=== PATIENT | male | born 1985 | race Caucasian/White ===

== ENCOUNTER → 2021-04-08 15:31 | Outpatient (CLI) | payer BC, SELFPAY ==
--- NOTE | ~2021-04-08 | XR_ITS ---
XR elbow LT min 3V DATE: 04/08/2021 15:45 INDICATION: Left elbow pain, bursitis TECHNIQUE: 4 views COMPARISON: None FINDINGS: There is mild to moderate dorsal soft tissue swelling over the olecranon process consistent with olecranon bursitis. No fracture, dislocation or elbow joint effusion. No periosteal reaction or bone destruction. IMPRESSION: Dorsal left elbow soft tissue swelling over the olecranon process, consistent with olecra non bursitis Reviewed, dictated and finalized at location B. IMPRESSION: Dorsal left elbow soft tissue swelling over the olecranon process, consistent with olecranon bursitis
== END ==
PROVIDERS: PCP Family Medicine; Visit Provider Nurse Practitioner Family
DX: M70.32 Other bursitis of elbow, left elbow (principal)
CPT/HCPCS: 73080

== ENCOUNTER → 2023-09-16 11:10 | Outpatient (CLI) | payer OTHER, SELFPAY ==
--- NOTE | ~2023-09-16 | XR_ITS ---
EXAMINATION: XR chest 2V Exam Date/Time: 09/16/2023 11:27 BUSINESS TAXES SPECIALIST HISTORY: R06.2 - Wheezing Comparison: 10/01/2016. RESULT: Lines, tubes, and devices: None. Lungs and pleura: Linear perihilar opacities, with ill-defined patchy opacities in the bilateral sup rahilar and infrahilar regions. Cardiomediastinal silhouette: Stable. Other: No acute osseous or upper abdominal finding. IMPRESSION: Pulmonary opacities may reflect interstitial edema or respiratory bronchiolitis, as can be seen with atypical infection, asthma, aspiration, and small airways disease. Reviewed, dictated and finalized at location K. NESS TAXES SPECIALIST IMPRESSION: Pulmonary opacities may reflect interstitial edema or respiratory bronchiolitis , as can be seen with atypical infection, asthma, aspiration, and small airways disease.
== END ==
PROVIDERS: PCP Nurse Practitioner Adult Health; Visit Provider Nurse Practitioner Adult Health
DX: R91.8 Other nonspecific abnormal finding of lung field (principal); R06.2 Wheezing
CPT/HCPCS: 71046

== ENCOUNTER 2024-04-27 14:42 | Outpatient (CLI) | payer OTHER, SELFPAY ==
--- NOTE | 2024-04-30 10:25 | P.PCNPFT_ITS ---
PFT Procedure Performed PFT Procedure Performed Spirometry with Pre/Post Bronchodilator Plethysmography (Lung Vol) Diffusing Cap (DLCO) Flow Vol Loop PFT Interpretation DOS: 04/27/2024 REQUESTING: Dr. Sparks REASON FOR TESTING: Asthma PULMONARY FUNCTION TESTS Results are reliable and reproducible. Repeatability of spirometry FEV1 maneuver pre and post bronchodilator is Grade A. Spirometry: The pre-bronchodilator FEV1 is 3.27 L, 77%, decreased. The pre- bronchodilator FVC is 4.64 L, 88%, decreased. The FEV1/FVC ratio is 70%, decreased. After bronchodilator, the FEV1 is 3.28 L, 77%, no change. The post bronchodilator FVC is 4.86 L, 92%, +5%. The FEV1/FVC ratio is 68%, decreased. The FEF 25-75% is 2.24 L, decreased, 54% and does not change after bronchodilator administration. Lung volumes: The total lung capacity is 7.25 L, 104%, normal. The slow vital capacity is 5.13 L, 97%, higher than the forced vital capacity measured in spirometry. The residual volume is 2.12 L, 115%, normal. The RV/TLC is 29%, normal. Airway resistance is increased. Diffusion: DLCO is 30.6, 93%, normal. The DLCO/VA is 4.49, 92%, normal. Flow volume loop: The flow volume loop is unremarkable. IMPRESSION: This spirometry shows a mild obstructive ventilatory impairment without response to bronchodilator, normal lung volumes and normal diffusion. Lack of response to bronchodilator should not preclude use if clinically indicated. Rose Sparks MD
== END 2024-04-27 14:43 | disposition home or self-care (01) ==
LOC: ANHPFT 14:45
PROVIDERS: PCP Family Medicine; Visit Provider Internal Medicine Critical Care Medicine
DX: J45.998 Other asthma (principal)
CPT/HCPCS: 94060; 94726; 94729

== ENCOUNTER 2024-11-30 10:02 | Outpatient (CLI) | payer OTHER, SELFPAY ==
--- NOTE | ~2024-11-30 | CT_ITS ---
EXAMINATION:CT diagnostic chest wo con DATE: 11/30/2024 10:13 INDICATION: Shortness of breath. TECHNIQUE: Computed tomography (CT) of the chest was performed without intravenous contrast. Automate d exposure control and iterative reconstruction technique were employed. The dose-length product (DLP ) was 307.58 mGy-cm. COMPARISON: Chest 2 views 09/16/2023. FINDINGS: There is mild atelectasis bilaterally. There are mild patchy groundglass opacities in the p eripheral upper lobes. No pleural effusion. The heart size is normal. There are coronary artery calci fications. No pericardial effusion. There is diffuse hepatic steatosis. There is mild thoracic spondy losis. IMPRESSION: 1. Mild groundglass opacities in the peripheral upper lobes, likely atypical pneumonia. Reviewed, dictated and finalized at location A. IMPRESSION: 1. Mild groundglass opacities in the peripheral upper lobes, likely atypical pn eumonia.
--- OUTSIDE RECORDS SUMMARY | 2024-11-30 10:47 | XMS_ITS | Clinical Summary ---
Author Organization [facility] Address [address] [place] [address] Care Team Providers Care Care Nurse Rn Name Role Phone Moshe Coto MD Primary Care Provider [phone] Allergies No known active allergies Medications albuterol (PROVENTIL) (2.5 MG/3ML) 0.083% nebulizer solution Take 6 mLs (5 mg total) by nebulization every 4 (four) hours as needed for Wheezing or Shortness of breath (cough). 360 mL 4 Active TRELEGY ELLIPTA 200-62.5-25 MCG/ACT AEROSOL POWDER, BREATH ACTIVATED Inhale 1 puff into the lungs daily. 4 Active Active Problems No known active problems Social History Tobacco Use Types Packs/Day Years Used Date Smoking Tobacco: Every Day Cigarettes Smokeless Tobacco: Never Tobacco Cessation:Ready to Q uit: Not Asked; Counseling Given: Not Answered Alcohol Use Standard Drinks/Week Comments Not Currently 0 (1 standard drink = 0.6 oz pur e alcohol) Sex and Gender Information Value Date Recorded Sex Assigned at Not on file Legal Sex Male 7:17 PM CDT Gender Identity Not on file Sexual Orientation Not on file Last Filed Vital Signs Vital Sign Reading Time Taken Comments Blood Pressure 145/85 03/12/2024 8:36 AM CDT Pulse 88 03/12/2024 8:34 AM CDT Temperature 36.9 C (98.5 F) 03/12/2024 8:34 AM CDT Respiratory Rate 16 03/12/2024 8:34 AM CDT Oxygen Saturation 96% 03/12/2024 8:34 AM CDT Inhaled Oxygen Concentration - - Weight 89.4 kg (197 lb) 03/12/2024 8:34 AM CDT Height 177.8 cm (5' 10 ) 03/12/2024 8:34 AM CDT Body Mass Index 28.27 03/12/2024 8:34 AM CDT Plan of Treatment Health Maintenance Due Date Last Done Comments Annual Physical 1987 Pneumococcal Vaccine: Pediat rics (0 to 5 Years) and At-Risk Patients (6 to 64 Years) (1 of 2 - PCV) 1990 Hepatitis C 2002 DTaP, Tdap and Td Vaccines ( 1 - Tdap) 2003 Hepatitis B Vaccines (1 of 3 - 19+ 3-dose series) 2003 COVID-19 Vaccine (2 - 2023-2 5 season) 2024 12/09/2020 Influenza Adult (#1) 2024 PHQ-2 (Physician [place]) 09/05/2024 HPV Vaccines Aged Out No longer eligi ble based on patient's age to complete this topic Meningococcal B Vaccine Aged Out No l onger eligible based on patient's age to complete this topic Meningococcal Vaccine Aged Out No rayna juan eligible based on patient's age to complete this topic RSV Immunizations Under 20 Months Aged Out No longer eligible based on patient's age to complete this topic Insurance [employer] Care Teams Care Nurse Rn Relationship Specialty Start Date End Date Moshe Coto MD [address] [address] [address] PCP - General FAMILY PRACTICE 05/12/19
[2024-12-01 08:13] LABS: Alpha-1-Antitrypsin, QN 121 mg/dL (83-199)
== END 2024-11-30 10:03 | disposition home or self-care (01) ==
LOC: ANHIMG 10:02
PROVIDERS: PCP Family Medicine; Visit Provider Internal Medicine Critical Care Medicine
DX: R06.02 Shortness of breath (principal); J45.40 Moderate persistent asthma, uncomplicated; R91.8 Other nonspecific abnormal finding of lung field
CPT/HCPCS: 36415; 71250; 82103

== ENCOUNTER 2024-12-19 14:13 | Outpatient (CLI) | payer OTHER, SELFPAY ==
--- NOTE | 2024-12-19 14:23 | ECHO_ITS ---
Patient Info Name: Virgilio Suh Age: 39 years : 1985 Gender: Male Ht: 70 in Wt: 205 lbs BSA: 2.17 m2 HR: 89 bpm BP: 155 / 96 mmHg Heart Rhythm: Sinus Rhythm Technical Quality: Good Exam Date: 12/19/2024 2:26 PM Exam Location: Echo Lab Patient Status: Outpatient Admit Date: 12/19/2024 Staff Ordering Physician: Rose Sparks MD Conveyor System Operator: Candis Alvarado RDCS Attending Provider: Rose Sparks MD Referring Physician: Bridger BRICEÑO; Exam Type: CA echo doppler color flow Study Info Indications R06.02 - Shortness of breath Complete two-dimensional, color flow and Doppler transthoracic echocardiogram is performed. Summary 1. Complete two-dimensional, color flow and Doppler transthoracic echocardiogram is performed. 2. Left ventricular chamber dimension is normal. 3. Left ventricular systolic function is normal, estimated at 65-70%. 4. The left ventricular diastolic function is grade II diastolic dysfunction. 5. E/e' 11 is mildly elevated. Left Ventricle E/e' 11 is mildly elevated. Left ventricular chamber dimension is normal. Left ventricular systolic function is normal, estimated at 65-70%. The left ventricular diastolic function is grade II diastolic dysfunction. Right Ventricle Right ventricular chamber dimension is normal. Right ventricular systolic function is normal. Left Atria Left atrial chamber dimension is normal. Right Atria Right atrial chamber dimension is normal. Aortic Valve The aortic valve is trileaflet. There is no aortic valve stenosis. There is no aortic valve regurgitation. Pulmonic Valve There is no pulmonic regurgitation. Mitral Valve There is no mitral valve stenosis. There is no mitral valve regurgitation. Tricuspid Valve There is no tricuspid valve regurgitation. Pericardium/Pleural There is no pericardial effusion. Inferior Vena Cava Normal inferior vena cava with >50% collapse upon inspiration consistent with normal right atrial pressure, 5 mmHg. Aorta The aortic root size at the sinus of Valsalva is normal. Left Ventricular Outflow Tract Name Value Normal LVOT 2D LVOT Diameter 2.0 cm LVOT Doppler LVOT Peak Gradient 8 mmHg LVOT Mean Gradient 4 mmHg LVOT VTI 24 cm LVOT VTI/AV VTI Ratio 0.9 LVOT Stroke Volume 74 ml LVOT CO 5.9 l/min LVOT CI 2.7 l/min/m2 Pulmonic Valve Name Value Normal RVOT Doppler RVOT Peak Gradient 4 mmHg PV Doppler PV Peak Gradient 8 mmHg Mitral Valve Name Value Normal MV Doppler MV Decel [place] 611 cm/s2 MV PHT 54 ms MV Area (PHT) 4.1 cm2 4.0-5.0 MV Diastolic Function MV E Peak Velocity 114 cm/s MV A Peak Velocity 86 cm/s MV E/A 1.3 MV Decel Time 187 ms MV Annular TDI MV E/e' (Septal) 12.5 <=8.0 MV E/e' (Lateral) 11.2 <=8.0 MV E/e' (Average) 11.8 Tricuspid Valve Name Value Normal Estimated PAP/RSVP RA Pressure 5 mmHg <=5 Aorta Name Value Normal Ascending Aorta Ao Root Diameter (MM) 3.0 cm Ao Root Diam Index (MM) 1.4 cm/m2 Aortic Valve Name Value Normal AV Doppler AV Peak Velocity 151 cm/s AV Peak Gradient 9 mmHg AV Mean Gradient 5 mmHg AV VTI 26 cm AV Area (Cont Eq VTI) 2.8 cm2 >=3.0 AV Area (Cont Eq Joel) 2.8 cm2 AV Regurgitation 2D LVOT Area 3.1 cm2 Ventricles Name Value Normal LV Dimensions 2D/MM IVS Diastolic Thickness (2D) 1.1 cm 0.6-1.0 LVID Diastole (2D) 4.8 cm 4.2-5.8 LVIW Diastolic Thickness (2D) 1.0 cm 0.6-1.0 LVID Systole (2D) 2.7 cm 2.5-4.0 LVOT Diameter 2.0 cm LV Mass (2D Cubed) 182.39 g 88.00-224.00 LV Mass Index (2D Cubed) 84 g/m2 49-115 Relative Wall Thickness (2D) 0.40 LV Fractional Shortening/Ejection Fraction 2D/MM LV Fractional Shortening (2D) 45 % 25-43 LV EF (2D Teicholz) 76 % 52-72 LV Diastolic Volume (4C MOD) 91 ml LV EF (4C MOD) 66 % LV Diastolic Volume (2C MOD) 96 ml LV EF (2C MOD) 65 % LV Diastolic Volume (BP MOD) 93 ml 62-150 LV Diastolic Volume Index (BP MOD) 43 ml/m2 34-74 LV Systolic Volume (BP MOD) 32 ml 21-61 LV Systolic Volume Index (BP MOD) 15 ml/m2 11-31 LV EF (BP MOD) 66 % 52-72 LV Diastolic Length (4C) 9.4 cm LV Systolic Length (4C) 7.6 cm LV Stroke Volume (4C MOD) 60 ml Atria Name Value Normal LA Dimensions LA Dimension (MM) 4.4 cm 3.0-4.1 LA Volume (4C A-L) 56 ml LA Volume (BP A-L) 56 ml RA Dimensions RA Area (4C) 13.3 cm2 <=18.0 Report Signatures
--- OUTSIDE RECORDS SUMMARY | 2024-12-19 15:27 | XMS_ITS | Clinical Summary ---
Author Organization [facility] Address [address] [place] [address] Care Team Providers Care Legal Internship Name Role Phone Moshe Coto MD Primary Care Provider [phone] Allergies No known active allergies Medications albuterol [...] 5 Years) and At-Risk Patients (6 to 49 Years) (1 of 2 - PCV) 1990 Hepatitis C 2002 DTaP, Tdap and Td Vaccines ( 1 - Tdap) 2003 Hepatitis B Vaccines (1 of 3 - 19+ 3-dose series) 2003 COVID-19 Vaccine (2 - 2023-2 5 season) 2024 12/09/2020 PHQ-2 (Physician [place]) 09/05/2024 HPV Vaccines Aged Out No longer [...] patient's age to complete this topic Insurance [employer] Care Teams Legal Internship Relationship Specialty Start Date End Date Moshe Coto MD [address] [place] [address] PCP - General FAMILY PRACTICE 05/12/19
== END 2024-12-19 14:14 | disposition home or self-care (01) ==
LOC: ANHCARD 14:14
PROVIDERS: PCP Family Medicine; Visit Provider Internal Medicine Critical Care Medicine
DX: R93.1 Abnormal findings on diagnostic imaging of heart and coronary circulation (principal); R09.02 Hypoxemia
CPT/HCPCS: 93306

== ENCOUNTER 2025-04-16 06:57 | Outpatient (CLI) | payer OTHER, SELFPAY ==
--- OUTSIDE RECORDS SUMMARY | 2025-04-16 07:00 | XMS_ITS | Encounter Summary ---
Author Organization [facility] Address [facility] [place] [address] Care Team Providers Care Kayaking Instructor Name Role Phone Moshe Coto MD Primary Care Provider [phone] Encounter Details Date Type Department Care Team (Late st Contact Info) Description 02/14/2025 [place] Message [facility] [address] [place] [address] Jake Becker MD [address] [address] Question Social History Tobacco Use Types Packs/Day Years Used Date Smoking Tobacco: Every Day Cigarettes Smokeless Tobacco: Never Alcohol Use Standard Drinks/Week Comments Not Currently 0 (1 standard drink = 0.6 oz pur e alcohol) Humiliation, Afraid, Rape, and Kick questionnair e Answer Date Recorded Within the last year, have y ou been afraid of your partner or ex-partner? No 02/04/2025 Within the last year, have y ou been humiliated or emotionally abused in other ways by your partner or ex-partner? No Within the last year, have y ou been kicked, hit, slapped, or otherwise physically hurt by your partner or ex-partner? No 02/04/2025 Within the last year, have y ou been raped or forced to have any kind of sexual activity by your partner or ex-partner? No 02/04/2025 Overall Financial Resource Strain (CARDIA) Answe r Date Recorded How hard is it for you to pa y for the very basics like food, housing, medical care, and heating? Not hard at all 02/04/2025 Hunger Vital Sign Answer Date Recorded Within the past 12 months, y ou worried that your food would run out before you got the money to buy more. Never true 02/05/20 25 Within the past 12 months, t he food you bought just didn't last and you didn't have money to get more. Never true 02/04/2025 Housing Stability Vital Sign Answer Geo e Recorded In the last 12 months, was t here a time when you were not able to pay the mortgage or rent on time? No 02/04/2025 In the past 12 months, how m any times have you moved where you were living? 0 02/04/2025 At any time in the past 12 m [facility], were you homeless or living in a care home (including now)? No 02/04/2025 Sex and Gender Information Value Date Recorded Sex Assigned at Male 02/04/2025 3:41 AM CDT Legal Sex Male 7:17 PM CDT Gender Identity Not on file Sexual Orientation Not on file documented as of this encounter Functional Status * Are you deaf or do you have serious difficulty hearing Answer Date of Assessment Author Status No 02/04/2025 6:07 AM ABDULKADIRT Jacqueline Lawler RN Active * Are you blind or do you have serious difficulty seeing, even when wearing glasses? Answer Date of Assessment Author Status No 02/04/2025 6:07 AM ABDULKADIRT Jacqueline Lawler RN Active * Do you have serious difficulty walking or climbing stairs? Answer Date of Assessment Author Status No 02/04/2025 6:07 AM ABDULKADIRT Jacqueline Lawler RN Active * Do you have difficulty dressing or bathing? Answer Date of Assessment Author Status No 02/04/2025 6:07 AM ABDULKADIRT Jacqueline Lawler RN Active * Because of a physical, mental, or emotional condition, do you have difficulty doing errands alone such as visiting a doctor's office or shopping? Answer Date of Assessment Author Status No 02/04/2025 6:07 AM CDT Bucky, Jacqueline E, RN Active documented as of this encounter Mental Status * Because of a physical, mental, or emotional condition, do you have serious difficulty concentrating, remembering, or making decisions? Answer Entry Date Author Status No 02/04/2025 6:07 AM CDT Jacqueline Lawler RN Active documented in this encounter Plan of Treatment Upcoming Encounters Date Type Department Care Team (Late st Contact Info) Description 05/16/2025 11:15 AM CDT Office Visit [place] [facility] [address] [place] [address] Nisha Saravia FNP [address] [place], [place] [address] [place] [address] documented as of this encounter Goals Goal Patient Goal Type Associated Problems Recent Progress Patient-Stated? Author Quit smoking Lifestyle No Prisca Flores RN documented as of this encounter Visit Diagnoses Not on filedocumented in this encounter Care Teams Kayaking Instructor Relationship Specialty Start Date End Date Moshe Coto MD [address] [place] [address] PCP - General FAMILY PRACTICE 05/12/19 documented as of this encounter
--- OUTSIDE RECORDS SUMMARY | 2025-04-16 07:00 | XMS_ITS | Clinical Summary ---
Author Organization [facility] Address [address] [place] [address] Care Team Providers Care Vice President Of Recruiting Name Role Phone Moshe Coto MD Primary Care Provider [phone] Allergies No known active allergies Medications albuterol (PROVENTIL) (2.5 MG/3ML) 0.083% nebulizer solution Take 6 mLs (5 mg total) by nebulization every 4 (four) hours as needed for Wheezing or Shortness of breath (cough). 360 mL 4 Active carvedilol (COREG) 6.25 MG tablet Take 1 tablet (6.25 mg total) by mouth 2 (two) times daily with meals. 60 tablet 3 5 Active losartan (COZAAR) 25 MG tablet Take 1 tablet (25 mg total) by mouth daily. 30 tablet 3 5 Active nitroglycerin (NITROSTAT) 0.[address] 1 tablet (0.4 mg total) under the tongue every 5 (five) minutes as needed for Chest Pain. 25 tablet 5 Active BREZTRI AEROSPHERE 160-9-4.8 MCG/ACT inhaler Inhale 2 puffs into the lungs 2 (two) times daily. 5 Active albuterol sulfate HFA 108 (90 Base) MCG/ACT inhaler Inhale 2 puffs into the lungs every 4 (four) hours as needed. 5 Active ticagrelor (BRILINTA) 90 mg tablet Take 1 tablet (90 mg total) by mouth 2 (two) times daily. 60 tablet 3 5 Active aspirin 81 MG chewable tablet Chew 1 tablet (81 mg total) by mouth daily. 100 tablet 3 5 Active atorvastatin (LIPITOR) 80 MG tablet Take 1 tablet (80 mg total) by mouth nightly at bedtime. 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 02/07/2025 MyChart Message Enc [facility] [id number] [place] [address] Jake Becker MD Work Note 02/05/2025 Telephone [facility] [place] [address] Nisha Glass NP Appointment Request 02/04/2025 4:39 AM CDT - 02/05/2025 10:37 AM CDT Hospital Encounter [facility] [place] [address] Jonh Randall MD Islam, Maaroof, MD Sadat, Kamel, MD Discharge Disposition: Home or Self Care (Routine Discharge) 02/04/2025 3:26 AM CDT - 02/04/2025 4:20 AM CDT Emergency [facility] Emergency Room [id number] [place] [id number] Jas Man MD Chest Pain Discharge Disposition: Transfer to Acute Care Hospital 02/04/2025 Orders Only [facility] Emergency Room [address] [place] [address] Emergency, Nurse, RN 02/04/2025 Travel from Last 3 Months Social History Tobacco Use Types Packs/Day Years [...] any time in the past 12 m [facility], were you homeless or living in a care home (including now)? No 02/04/2025 Sex and Gender Information Value Date Recorded Sex Assigned at Male 02/04/2025 3:41 AM CDT Legal Sex Male 7:17 PM CDT Gender Identity Not on file Sexual Orientation Not on file Last Filed Vital Signs Vital Sign Reading Time Taken Comments Blood Pressure 90/50 02/14/2025 12:06 PM CDT Pulse 75 02/14/2025 12:06 PM CDT Temperature 36.7 C (98.1 F) 02/05/2025 7:32 AM CDT Respiratory Rate 13 02/05/2025 7:32 AM CDT Oxygen Saturation 94% 02/05/2025 9:05 AM CDT Inhaled Oxygen Concentration - - Weight 93 kg (205 lb) 02/14/2025 12:06 PM CDT Height 177.8 cm (5' 10) 02/14/2025 12:06 PM CDT Body Mass Index 29.41 02/14/2025 12:06 PM CDT Plan of Treatment Upcoming Encounters Date Type Department Care Team (Late st Contact Info) Description 05/16/2025 11:15 AM CDT [facility] [address] [place] [phone] Nisha Saravia FNP [address] [place] [address] [address] [place] [address] Health Maintenance Due Date Last Done Comments Annual Physical 1987 Hepatitis C 2002 DTaP, Tdap and Td Vaccines ( 1 - Tdap) 2003 Hepatitis B Vaccines (1 of 3 - 19+ 3-dose series) 2003 Pneumococcal Vaccine: Pediat rics (0 to 5 Years) and At-Risk Patients (6 to 49 Years) (1 of 2 - PCV) 2003 HPV Vaccines (1 - 3-dose SCD M series) 2011 COVID-19 Vaccine (2 - 2023-2 5 season) 2024 12/09/2020 PHQ-2 (Physician Panacea) 09/05/2024 Meningococcal B Vaccine Aged Out No l onger eligible based on patient's age to complete this topic Meningococcal Vaccine Aged Out No rayna juan eligible based on patient's age to complete this topic RSV Immunizations Under 20 Months Aged Out No longer eligible based on patient's age to complete this topic Goals Goal Patient Goal Type Associated Problems Recent Progress Patient-Stated? Author Quit smoking Lifestyle Prisca Mcgovern RN Procedures Procedure Name Priority Date/Time Associated Diagnosis Comments LIPID PANEL Routine 02/05/2025 7:10 AM CDT BASIC METABOLIC PANEL Routine 02/05/2025 7:10 AM CDT THYROID STIM HORMONE TSH Routine 02/05/2025 7:10 AM CDT HEMOGLOBIN, GLYCOSYLATED Routine 02/05/2025 7:10 AM CDT MAGNESIUM Routine 02/05/2025 7:10 AM CDT CBC W/DIFF AUTOMATED Routine 02/05/2025 7:10 AM CDT HEMOGLOBIN, GLYCOSYLATED Routine 02/04/2025 1:52 PM CDT LIPID PANEL Routine 02/04/2025 1:52 PM CDT USE ECHOCARDIOGRAM Today 02/04/2025 7: 58 AM CDT MRSA SCREENING Routine 02/04/2025 6:00 AM CDT ECG 12-LEAD Routine 02/04/2025 5:46 AM CDT XA LHC POSS DEBBIE 02/04/2025 5:09 AM CDT STEMI (ST elevation myocardial infarction) ([facility]) CRITICAL CARE Routine 02/04/2025 3:48 AM CDT XR CHEST PORTABLE STAT 02/04/2025 3:4 5 AM CDT TROPONIN, QUANT STAT 02/04/2025 3:32 AM CDT COMPREHENSIVE METABOLIC PANEL STAT 02/04/2025 3:32 AM CDT CBC W/DIFF AUTOMATED STAT 02/04/2025 3:32 AM CDT ECG 12-LEAD Routine 02/04/2025 3:29 AM CDT from Last 3 Months Results * HEMOGLOBIN, GLYCATED (02/05/2025 7:10 AM CDT) Only the most recent of2 resultswithin the time period is included. HGB A1C 5.4 <5.7 % 02/05/2025 9:28 AM CDT [facility] Comment: ADA GUIDELINES 2010 5.7 TO 6.4% INCREASED RISK OF DIABETES > OR = 6.5% CONSISTENT WITH DIABETES ESTIMATED AVG GLUCOSE 108 mg/dL 02/05/2025 9:28 AM CDT [facility] 02/05/2025 7:10 AM CDT us Jonh Randall MD LABORATORY Final Resul t [facility] [address] [place] [address], [place] [phone] * (ABNORMAL) BASIC METABOLIC PANEL (02/05/2025 7:10 AM CDT) [facility] [address] GLUCOSE 94 70 - 99 MG/DL 02/05/2025 8:58 AM CDT [facility] BUN 13 7 - 18 MG/DL 02/05/2025 8:58 AM T [facility] CREATININE S/P/B 1.32(H) 0.7 - 1.3 MG/DL 02/05/2025 8:58 AM CDT [facility] SODIUM S/P/B 138 136 - 145 MMOL/L 02/05/2025 8:58 AM T [facility] POTASSIUM S/P/B 4.4 3.5 - 5.1 MMOL/L 02/05/2025 8:58 AM T [facility] CHLORIDE S/P/B 106 97 - 115 MMOL/L 02/05/2025 8:58 AM CDT [facility] CO2 27.4 21 - 32 MMOL/L 02/05/2025 8:58 AM T [facility] CALCIUM S/P/B 9.5 8.5 - 10.1 MG/DL 02/05/2025 8:58 AM T [facility] ANION GAP 4.6 2 - 10 MMOL/L 02/05/2025 8:58 AM T [facility] BUN CREATININE RATIO 9.8 6 - 26 02/05/2025 8:58 AM T [facility] GFR ESTIMATE 70(L) >90 ML/MIN/1.7 3 M2 02/05/2025 8:58 AM T [facility] Comment: NOTE: eGFR is not calculated for patients <18 years of age or gender unknown. This is an estimated GFR calculation using the new CKD EPI creatinine equation without race and so does not require a correction factor for race. This estimated GFR should not be used for calculating drug doses. 02/05/2025 7:10 AM CDT us Jonh Randall MD LABORATORY Final Resul t [facility] [address] [place] [address], [place] [phone] * (ABNORMAL) LIPID PANEL (02/05/2025 7:10 AM CDT) Only the most recent of2 resultswithin the time period is included. [facility] [address] CHOLESTEROL 236(H) <200 MG/DL 02/05/2025 8:57 AM CDT [facility] TRIGLYCERIDES 317(H) <150 MG/DL 02/05/2025 8:57 AM CDT [facility] HDL 28(L) >40.0 MG/DL 02/05/2025 8:57 AM CDT [facility] LDL (CALCULATED) 145(H) <100 MG/DL 02/05/2025 8:57 AM CDT [facility] NON HDL CHOLESTEROL 208(H) <130 MG/DL 02/05/2025 8:57 AM T [facility] CHOL/HDL RATIO 8.4(H) 0.0 - 4.5 02/05/2025 8:57 AM CDT [facility] VLDL CALCULATION 63(H) 5 - 55 MG/DL 02/05/2025 8:57 AM CDT [facility] LIPID INTERPRETATION 02/05/2025 8:57 AM CDT [facility] Comment: [facility] CONCENSUS REPORT RECOMMENDATIONS: ADULT CHILD LOW RISK: CHOLESTEROL <200 <170 TRIGLYCERIDE <150 --- HDL >=60 --- LDL <100 <110 BORDERLINE: CHOLESTEROL 200-239 170-199 TRIGLYCERIDE 150-199 --- HDL 40-59 --- LDL 100-159 110-129 HIGH RISK: CHOLESTEROL >=240 >=200 TRIGLYCERIDE >=200 --- HDL <40 --- LDL >=160 >=130 02/05/2025 7:10 AM CDT us Jonh Randall MD LABORATORY Final Resul t [facility] [address] [place] [address], * CBC W/DIFF AUTOMATED (02/05/2025 7:10 AM CDT) Only the most recent of2 resultswithin the time period is included. WBC 5.65 4.5 - 11.0 x10'3/uL 02/05/2025 8:24 AM CDT [facility] RBC 5.79 4.70 - 6.10 x10'6/uL 02/05/2025 8:24 AM CDT [facility] HGB 17.5 14.0 - 18.0 G/DL 02/05/2025 8:24 AM CDT [facility] HCT 53.8 43.0 - 54.0 % 02/05/2025 8:24 AM CDT [facility] MCV 92.9 80.0 - 94.0 FL 02/05/2025 8:24 AM CDT [facility] MCH 30.2 27.0 - 31.0 PG 02/05/2025 8:24 AM CDT [facility] MCHC 32.5 32.0 - 36.0 G/DL 02/05/2025 8:24 AM CDT [facility] RDW 13.5 11.5 - 14.5 % 02/05/2025 8:24 AM CDT [facility] PLT 215 130 - 400 x10'3/uL 02/05/2025 8:24 AM CDT [facility] MPV 11.1 9.3 - 12.2 FL 02/05/2025 8:24 AM CDT [facility] DIFFERENTIAL TYPE AUTOMATED DIFFERENTIAL 02/05/2025 8:24 AM CDT [facility] NEUTROPHILS % 56.6 % 02/05/2025 8:24 AM CDT [facility] LYMPHOCYTES % 31.0 % 02/05/2025 8:24 AM CDT [facility] MONOCYTES % 9.2 % 02/05/2025 8:24 AM CDT [facility] EOSINOPHILS 1.1 % 02/05/2025 8:24 AM CDT [facility] BASOPHILS 0.7 % 02/05/2025 8:24 AM CDT [facility] IMMATURE GRANS % 1.4 % 02/06/20 8:24 AM CDT [facility] ABS. NEUTROPHILS 3.20 1.80 - 7.70 x10'3/uL 02/05/2025 8:24 AM CDT [facility] ABS. LYMPHOCYTES 1.75 1.00 - 4.80 x10'3/uL 02/05/2025 8:24 AM CDT [facility] ABS. MONOCYTES 0.52 0.30 - 0.82 x10'3/uL 02/05/2025 8:24 AM CDT [facility] ABS. EOSINOPHILS 0.06 0.04 - 0.54 x10'3/uL 02/05/2025 8:24 AM CDT [facility] ABS. BASOPHILS 0.04 0.01 - 0.08 x10'3/uL 02/05/2025 8:24 AM CDT [facility] ABS. IMMATURE GRANULOCYTES 0.08 0.00 - 0.49 x10'3/uL 02/05/2025 8:24 AM CDT [facility] 02/05/2025 7:10 AM CDT Jonh Randall MD LABORATORY Final Resul t Performing Organization Address [facility] Co de Phone Number [facility] [address] [place] [address], * THYROID STIM HORMONE, TSH (02/05/2025 7:10 AM CDT) TSH 1.200 0.358 - 3.74 uIU/ML 02/05/2025 8:58 AM CDT [facility] Comment: HIGH DOSES OF BIOTIN MAY INTERFERE WITH THIS TEST RESULT. CORRELATION TO CLINICAL HISTORY AND PRESENTATION RECOMMENDED. 02/05/2025 7:10 AM CDT Jonh Randall MD LABORATORY Final Resul t Performing Organization Address [facility] Co de Phone Number [facility] [address] [place] [phone], * (ABNORMAL) MAGNESIUM (02/05/2025 7:10 AM CDT) MAGNESIUM 2.5(H) 1.8 - 2.4 MG/DL 02/05/2025 8:58 AM CDT [facility] 02/05/2025 7:10 AM CDT Jonh Randall MD LABORATORY Final Resul t Performing Organization Address [facility] Co de Phone Number [facility] [address] [place] [address], [place] [phone] * USE ECHOCARDIOGRAM (02/04/2025 7:58 AM CDT) Anatomical Region Laterality Modality Cardiac Echocardiogram 02/04/2025 7:11 AM CDT Narrative 02/04/2025 8:40 PM CDT Echocardiography Report Pat.Name: OMER SUH Pat.ID: [id number] St.Date: 02/04/2025 Exam Time: 7:11:00 AM Study Type:ECHO WITH CARDIAC DOPPLER COMP Height: 70 in Weight: 195 lb BSA: 2.06 m2 Age: 8 1985,39Y Sex: M BP: 161/90 HR: 87 bpm Sonogrphr: Katherine Motley Pat. Stat.:Inpatient Room: 218 Reason for Study:STEMI Procedures: 2D, M-mode, Doppler, Color Flow, The study quality is technically adequate. Race: W ++++++++++++++++++++++++++++++++++++ SUMMARY: ++++++++++++++++++++++++++++++++++++ The left ventricular size is normal. The left ventricular systolic function is normal. Estimated left ventricular ejection fraction is 60-65%. Left ventricular diastolic function is normal. Wall motion appears normal in all segments. The right ventricular size is normal. Right ventricular systolic function is normal. Trivial degree of aortic valve stenosis. ++++++++++++++++++++++++++++++++++++ FINDINGS: ++++++++++++++++++++++++++++++++++++ LV: The left ventricular size is normal. The left ventricular systolic function is normal. Estimated left ventricular ejection fraction is 60-65%. Mild concentric left ventricular hypertrophy. Left ventricular diastolic function is normal. WM: Wall motion appears normal in all segments. RV: The right ventricular size is normal. Right ventricular systolic function is normal. IVS: No evidence of ventricular septal defect. LA: The left atrial size is normal. The left atrial volume is normal ( less than 34 ml/M2). RA: Right atrial size is mildly enlarged. IAS: Atrial septum appears intact. ALEJANDRA: No evidence of pericardial effusion. AO: Normal aortic root. PA: Estimated right atrial pressure of 3 mmHg. SVn: Inferior vena cava shows >50% collapse with respiration consistent with normal right atrial pressure. AV: Trivial degree of aortic valve stenosis. The peak velocity across the aortic valve measures 2.1m/sec with a peak gradient of 18mmHg and a mean gradient of 12mmHg. The calculated aortic valve area is 2.9cm2. No evidence of aortic regurgitation. The aortic valve not well visualized. MV: Trace mitral regurgitation. No evidence of mitral valve stenosis. PV: No evidence of pulmonic valve stenosis. No evidence of pulmonic regurgitation. TV: A trace of tricuspid regurgitation. Right ventricular systolic pressure is <20 mmHg. No evidence of tricuspid valve stenosis. ++++++++++++++++++++++++++++++++++++ MEASUREMENTS: ++++++++++++++++++++++++++++++++++++ DOPPLER LVOT LVOTpkPG 9 mmHg LVOTmnPG 5 mmHg LVOTpkVel 152 cm/s (70-110)+* LVOT SV 88 ml LVOT TVI 28 cm LVOT CO 128 ml/s Pulmonary Veins PVnpkVeld 46.2 cm/s PVnVs/Vd 1.2 PVnpkVels 54.9 cm/s PVn A Dur 130 msec AV Forward Flow AV TVI 34.2 cm AV pkPG 16 mmHg AV pkVel 199 cm/s (100-170)+* Area (TVI) 2.57 cm2 (3-5)* AV mnPG 10 mmHg Area (Joel) 2.4 cm2 (3-5)* MV Forward Flow MV DeTm 169 msec MV pkE 76.8 cm/s (60-130) MV E/A 0.9 MV pkA 82.5 cm/s PV Forward Flow PV pkVel 105 cm/s (60-90)+* PV AC 115 msec PV pkPG 4 mmHg TV Regurg Flow TV pkPG 14 mmHg TV pkVel 189 cm/s (30-70)* TV Forward Flow TV pkE 79.5 cm/s Lat E' Lat e 13.7 cm/s Lat E/E' Lat E/e 5.6 Med E' Med e 10.2 cm/s Med E/E' Med E/e 7.5 Aortic Valve Aortic Valve Ar 1.25 Aortic Valve Ve 0.76 PV Antegrade Flow Acceleration Sl 799 cm/s2 Right Atrium Wagner's Disk 20 Right Ventricle Right Ventricle 16.2 cm/s 2D Left Ventricle LVIDd 4 cm (3.6-5.2) LV ESV 52 ml LVIDs 2.8 cm (2.3-3.9) LV ESV 60 ml LngAxd 9.8 cm LVESV BP 55.9 ml LngAxd 10 cm LV EF 55.6 % LV EDV 117 ml LV EF 50.4 % LV EDV 122 ml LV EF BP 53.4 % LVEDV BP 120 ml LV SV 65 ml LngAxs 8.09 cm LV SV 61 ml LngAxs 8.15 cm LV SV BP 64.1 ml LVPW LVPWd 1.2 cm Right Ventricle RVIDd 3.5 cm (2.6-4.3) Right Ventricle 24 mm Right Ventricle 35 mm Right and Left 0.875 Major Hazel 91 mm Ventricular Septum IVSd 1.2 cm Left Atrium LA a-p 4.1 cm (2.8-3.4)* LA VOLBP 51.3 ml Aorta Ao Rtd 3.1 cm (zsc 0.6) Ao Asc 3.4 cm (zsc 2.8)* LVOT LVOT 2 cm LVOTArea 3.14 cm2 Ratios IVS LA Biplane LAVol I BP 24.9 ml/m2 Right Atrium Minor Hazel 35 mm RA Single Plane Right Atrium MO 13 mm Right Atrium Sy 31.4 ml Right Atrium Sy 47.1 mm Right Atrium Sy 15.2 ml/m2 Right Atrium Sy 13.4 cm2 MMODE TA Tricuspid Annul 27.7 mm <Electronic Signature> 02/04/2025 08:40 PM Red Main M.D. Procedure Note Red Main MD - 02/04/2025 Echocardiography Report Pat.Name: OMER SUH Pat.ID: [id number] St.Date: 02/04/2025 Exam Time: 7:11:00 AM Study Type:ECHO WITH CARDIAC DOPPLER COMP Height: 70 in Weight: 195 lb BSA: 2.06 m2 Age: 8 1985,39Y Sex: M BP: 161/90 HR: 87 bpm Sonogrphr: Katherine Motley Pat. Stat.:Inpatient Room: 218 Reason for Study:STEMI Procedures: 2D, M-mode, Doppler, Color Flow, The study quality is technically adequate. Race: W ++++++++++++++++++++++++++++++++++++ SUMMARY: ++++++++++++++++++++++++++++++++++++ The left ventricular size is normal. The left ventricular systolic function is normal. Estimated left ventricular ejection fraction is 60-65%. Left ventricular diastolic function is normal. Wall motion appears normal in all segments. The right ventricular size is normal. Right ventricular systolic function is normal. Trivial degree of aortic valve stenosis. ++++++++++++++++++++++++++++++++++++ FINDINGS: ++++++++++++++++++++++++++++++++++++ LV: The left ventricular size is normal. The left ventricular systolic function is normal. Estimated left ventricular ejection fraction is 60-65%. Mild concentric left ventricular hypertrophy. Left ventricular diastolic function is normal. WM: Wall motion appears normal in all segments. RV: The right ventricular size is normal. Right ventricular systolic function is normal. IVS: No evidence of ventricular septal defect. LA: The left atrial size is normal. The left atrial volume is normal ( less than 34 ml/M2). RA: Right atrial size is mildly enlarged. IAS: Atrial septum appears intact. ALEJANDRA: No evidence of pericardial effusion. AO: Normal aortic root. PA: Estimated right atrial pressure of 3 mmHg. SVn: Inferior vena cava shows >50% collapse with respiration consistent with normal right atrial pressure. AV: Trivial degree of aortic valve stenosis. The peak velocity across the aortic valve measures 2.1m/sec with a peak gradient of 18mmHg and a mean gradient of 12mmHg. The calculated aortic valve area is 2.9cm2. No evidence of aortic regurgitation. The aortic valve not well visualized. MV: Trace mitral regurgitation. No evidence of mitral valve stenosis. PV: No evidence of pulmonic valve stenosis. No evidence of pulmonic regurgitation. TV: A trace of tricuspid regurgitation. Right ventricular systolic pressure is <20 mmHg. No evidence of tricuspid valve stenosis. ++++++++++++++++++++++++++++++++++++ MEASUREMENTS: ++++++++++++++++++++++++++++++++++++ DOPPLER LVOT LVOTpkPG 9 mmHg LVOTmnPG 5 mmHg LVOTpkVel 152 cm/s (70-110)+* LVOT SV 88 ml LVOT TVI 28 cm LVOT CO 128 ml/s Pulmonary Veins PVnpkVeld 46.2 cm/s PVnVs/Vd 1.2 PVnpkVels 54.9 cm/s PVn A Dur 130 msec AV Forward Flow AV TVI 34.2 cm AV pkPG 16 mmHg AV pkVel 199 cm/s (100-170)+* Area (TVI) 2.57 cm2 (3-5)* AV mnPG 10 mmHg Area (Joel) 2.4 cm2 (3-5)* MV Forward Flow MV DeTm 169 msec MV pkE 76.8 cm/s (60-130) MV E/A 0.9 MV pkA 82.5 cm/s PV Forward Flow PV pkVel 105 cm/s (60-90)+* PV AC 115 msec PV pkPG 4 mmHg TV Regurg Flow TV pkPG 14 mmHg TV pkVel 189 cm/s (30-70)* TV Forward Flow TV pkE 79.5 cm/s Lat E' Lat e 13.7 cm/s Lat E/E' Lat E/e 5.6 Med E' Med e 10.2 cm/s Med E/E' Med E/e 7.5 Aortic Valve Aortic Valve Ar 1.25 Aortic Valve Ve 0.76 PV Antegrade Flow Acceleration Sl 799 cm/s2 Right Atrium Wagner's Disk 20 Right Ventricle Right Ventricle 16.2 cm/s 2D Left Ventricle LVIDd 4 cm (3.6-5.2) LV ESV 52 ml LVIDs 2.8 cm (2.3-3.9) LV ESV 60 ml LngAxd 9.8 cm LVESV BP 55.9 ml LngAxd 10 cm LV EF 55.6 % LV EDV 117 ml LV EF 50.4 % LV EDV 122 ml LV EF BP 53.4 % LVEDV BP 120 ml LV SV 65 ml LngAxs 8.09 cm LV SV 61 ml LngAxs 8.15 cm LV SV BP 64.1 ml LVPW LVPWd 1.2 cm Right Ventricle RVIDd 3.5 cm (2.6-4.3) Right Ventricle 24 mm Right Ventricle 35 mm Right and Left 0.875 Major Hazel 91 mm Ventricular Septum IVSd 1.2 cm Left Atrium LA a-p 4.1 cm (2.8-3.4)* LA VOLBP 51.3 ml Aorta Ao Rtd 3.1 cm (zsc 0.6) Ao Asc 3.4 cm (zsc 2.8)* LVOT LVOT 2 cm LVOTArea 3.14 cm2 Ratios IVS LA Biplane LAVol I BP 24.9 ml/m2 Right Atrium Minor Hazel 35 mm RA Single Plane Right Atrium MO 13 mm Right Atrium Sy 31.4 ml Right Atrium Sy 47.1 mm Right Atrium Sy 15.2 ml/m2 Right Atrium Sy 13.4 cm2 MMODE TA Tricuspid Annul 27.7 mm <Electronic Signature> 02/04/2025 08:40 PM Red Main M.D. us Jonh Randall MD ECHO Final Resul t * MRSA SCREENING (02/04/2025 6:00 AM CDT) SPEC DESCRIPTION NASAL 02/04/2025 6:00 AM CDT [facility] SPECIAL REQUESTS NO SPECIAL REQUEST 02/04/2025 6:00 AM CDT [facility] CULTURE RESULT NO METHICILLIN RESISTANT STAPHYLOCOCCUS AUREUS ISOLATED 02/05/2025 7:06 AM CDT [facility] SPECIMEN FROM INTERNAL NOSE / Unknown 02/04/2025 6:00 AM CDT 02/04/2025 7:28 AM CDT us Jonh Randall MD MICROBIOLOGY - GENERAL ORDE DOROTHY Final Result [facility] [address] [place] [address], [place] [phone] * ECG 12 lead (02/04/2025 5:46 AM CDT) Only the most recent of2 resultswithin the time period is included. 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1985 Requested By: ADOLFO WALTERS Order Number: [id number] Reading MD: Zahra Scherer Measurements Intervals Hazel Rate: 84 P: 55 OR: 169 QRS: 92 QRSD: 103 T: 28 QT: 336 QTc: 398 Interpretive Statements SINUS RHYTHM BORDERLINE RIGHT AXIS DEVIATION [QRS AXIS > 90] INFERIOR MYOCARDIAL INFARCTION , OF INDETERMINATE AGE [40+ ms Q WAVE AND/OR ST/T ABNORMALITY IN II/aVF] Compared to ECG 02/04/2025 03:29:12 Myocardial infarct finding now present Procedure Note Zahra Scherer MD - 02/04/[address] Test Date: 2025-02-04 Pat Name: OMER SUH Department: 40 Room: A218 Gender: Male 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1985 Requested By: ADOLFO WALTERS Order Number: [id number] Reading : Zahra Scherer Measurements Intervals Hazel Rate: 84 P: 55 OR: 169 QRS: 92 QRSD: 103 T: 28 QT: 336 QTc: 398 Interpretive Statements SINUS RHYTHM BORDERLINE RIGHT AXIS DEVIATION [QRS AXIS > 90] INFERIOR MYOCARDIAL INFARCTION , OF INDETERMINATE AGE [40+ ms Q WAVEAND/OR ST/T ABNORMALITY IN II/aVF] Compared to ECG 02/04/2025 03:29:12 Myocardial infarct finding now present us Adolfo Walters MD ECG ORDERABLES Final Result [facility] * XA [facility] POSS (02/04/2025 5:09 AM CDT) Anatomical Region Laterality Modality Cardiac Mold Maintenance Technician 02/04/2025 4:45 AM CDT Adolfo Walters MD TREE PRUNER Final Result * Critical Care (02/04/2025 3:48 AM CDT) Narrative Jas Man MD - 02/04/2025 3:48 AM CDT Jas Man MD 02/04/2025 4:26 AM Critical Care Performed by: Jas Man MD Authorized by: Jas Man MD Critical care provider statement: Critical care time (minutes): 35 Critical care time was exclusive of: Separately billable procedures and treating other patients Critical care was necessary to treat or prevent imminent or life-threatening deterioration of the following conditions: Cardiac failure and circulatory failure Critical care was time spent personally by me on the following activities: Development of treatment plan with patient or surrogate, discussions with consultants, evaluation of patient's response to treatment, examination of patient, obtaining history from patient or surrogate, ordering and performing treatments and interventions, ordering and review of laboratory studies, ordering and review of radiographic studies, pulse oximetry and re-evaluation of patient's condition Care discussed with: accepting provider at another facility Jas Man MD PROCEDURE/MINOR SURGICAL O RDERABLES Final Result * XR CHEST PORTABLE (02/04/2025 3:45 AM CDT) Anatomical Region Laterality Modality Chest Radiographic Colleen ging 02/04/2025 3:46 AM CDT Impressions 02/04/2025 3:48 AM CDT IMPRESSION: ======== 1. No acute cardiopulmonary findings. Referred By: Interpreted By: Anand Greene MD, 02/04/2025 3:46 AM Narrative 02/04/2025 3:48 AM CDT [address] [place] [address] Examination: Chest x-ray 1 view Exam Date/Time: 02/04/2025 3:45 AM Reason For Exam: chest pain Mid left chest pain Comparison: Chest radiograph 09/11/2023 Technique: Single AP view of the chest was obtained. Findings: Heart size normal. No large effusion. No pneumothorax. Pulmonary vasculature within normal limits. No focal infiltrates or consolidations. Old right clavicle fracture. ======== Procedure Note Anand Greene MD - 02/04/[address] [place] [address] Examination: Chest x-ray 1 view Exam Date/Time: 02/04/2025 3:45 AM Reason For Exam: chest pain Mid left chest pain Comparison: Chest radiograph 09/11/2023 Technique: Single AP view of the chest was obtained. Findings: Heart size normal. No large effusion. No pneumothorax.Pulmonary vasculature within normal limits. No focal infiltrates orconsolidations. Old right clavicle fracture. ======== IMPRESSION: ======== 1. No acute cardiopulmonary findings. Referred By: Interpreted By: Anand Greene MD, 02/04/2025 3:46 AM us Jas Man MD GENERAL IMAGING Final Resu lt * (ABNORMAL) COMPREHENSIVE METABOLIC PANEL (02/04/2025 3:32 AM CDT) [facility] [address] GLUCOSE 125(H) 70 - 99 MG/DL 02/04/2025 5:[address] [facility] BUN 12 7 - 18 MG/DL 02/04/2025 5:[address] [facility] CREATININE S/P/B 1.15 0.7 - 1.3 MG/DL 02/04/2025 5:[address] [facility] SODIUM S/P/B 141 136 - 145 MMOL/L 02/04/2025 5:[address] [facility] POTASSIUM S/P/B 3.6 3.5 - 5.1 MMOL/L 02/04/2025 5:[address] [facility] CHLORIDE S/P/B 103 100 - 108 MMOL/L 02/04/2025 5:[address] [facility] CO2 29.7 21 - 32 MMOL/L 02/04/2025 5:[address] [facility] CALCIUM S/P/B 9.0 8.5 - 10.1 MG/DL 02/04/2025 5:[address] [facility] BILIRUBIN TOTAL S/P/B 0.3 0.2 - 1.2 MG/DL 02/04/2025 5:[address] [facility] TOTAL PROTEIN S/P/B 7.2 6.4 - 8.2 G/DL 02/04/2025 5:[address] [facility] ALBUMIN S/P/B 3.8 3.4 - 5.0 G/DL 02/04/2025 5:[address] [facility] AST 32 15 - 37 U/L 02/04/2025 5:[address] [facility] ALT 51 16 - 60 U/L 02/04/2025 5:[address] [facility] ALKALINE PHOSPHATASE S/P/B 66 50 - 136 U/L 02/04/2025 5:[address] [facility] ANION GAP 8.3 5 - 15 MMOL/L 02/04/2025 5:[address] [facility] BUN CREATININE RATIO 10.4 6 - 26 02/04/2025 5:[address] [facility] A/G RATIO 1.1 1.0 - 2.0 RATIO 02/04/2025 5:[address] [facility] GFR ESTIMATE 83(L) >90 ML/MIN/1.7 3 M2 02/04/2025 5:[address] [facility] Comment: NOTE: eGFR is not calculated for patients <18 years of age. This is an estimated GFR calculation using the new CKD EPI creatinine equation without race and so does not require a correction factor for race. This estimated GFR should not be used for calculating drug doses. 02/04/2025 3:32 AM CDT Jas Man MD LABORATORY Final Resu lt [facility] [address] [place] [address], * (ABNORMAL) TROPONIN, QUANT (02/04/2025 3:32 AM CDT) TROPONIN I HIGH SENSITIVITY 401(HH) 0 - 75 ng/L 02/04/2025 5:[address] [facility] Comment: Critical Result(s) Called at: 05:26:30 on 02/04/2025 by: ROSINA CAPELLAN to and read back by:EMILY L HIGH DOSES OF BIOTIN, TROPONIN-SPECIFIC AUTOANTIBODIES, AND ANTIBODY THERAPY CONTAINING HAMA MAY INTERFERE WITH THIS TEST RESULT. CORRELATION TO CLINICAL HISTORY AND PRESENTATION RECOMMENDED. 02/04/2025 3:32 AM CDT Jas Man MD LABORATORY Final Resu lt [facility] [address] [place] [address], from Last 3 Months Insurance HelpAround Advance Directives * Full Code (Latest Code Status on File) Date Activated Date Inactivated Comments 02/04/2025 5:34 AM 02/05/2025 12:37 PM Care Teams Vice President Of Recruiting Relationship Specialty Start Date End Date Moshe Coto MD [address] [address] PCP - General FAMILY PRACTICE 05/12/19
--- OUTSIDE RECORDS SUMMARY | 2025-04-16 07:00 | XMS_ITS | Encounter Summary ---
Author Organization [facility] Address [facility] [place] [address] Care Team Providers Care Teacher Of Family And Consumer Science Name Role Phone Moshe Coto MD Primary Care Provider [phone] Reason for Referral * Consultation/Treatment (Routine) - New Request Specialty Diagnoses / Procedures Referred By Contac t Referred To Contact Cardiac Rehabilitation / [facility] Cardiopulmonary Rehab Diagnoses S/P PTCA (percutaneous transluminal coronary angioplasty) STEMI (ST elevation myocardial infarction) ([facility]) Stented coronary artery Procedures Cardiac Rehab (Phase II) (ONLY ORDER IF MD) Jake Becker MD [facility] [address] [place] [address] Phone: tel: fax: [facility] [address] [place] [address] Phone: tel:[phone] Referral ID Status Reason Start Date Expiration Date Visits Requested Visits Authorized [id number] New Request Cardiac Rehabilitation 5 03/17/2026 36 36 Encounter Details Date Type Department Care Team (Late st Contact Info) Description 02/14/2025 MyChart Message [facility] [address] [place] [address] Jake Becker MD [facility]. [address] [place] [address] Additional questions. Social History Tobacco Use Types Packs/Day Years [...] any time in the past [facility], were you homeless or living in a jail (including now)? No 02/04/2025 Sex and Gender [...] 6:07 AM CDT Jacqueline Lawler RN Active * Do you [...] 6:07 AM ABDULKADIRT Jacqueline Lawler RN Active documented as of this encounter Mental Status * Because of a physical, mental, or emotional condition, do you have serious difficulty concentrating, remembering, or making decisions? Answer Entry Date Author Status No 02/04/2025 6:07 AM Jacqueline Robledo RN Active documented in this encounter Plan of Treatment Upcoming Encounters Date Type Department Care Team (Late st Contact Info) Description 05/16/2025 11:15 AM CDT Office Visit [facility] [address] [place] [address] Nisha Saravia FNP [address] [place] [address] [address] [place] [address] Scheduled Orders Name Type Priority Associated Diagnoses Orde r Schedule Cardiac Rehab (Phase II) (ONLY ORDER IF MD) Card Rehab Routine S/P PTCA (percutaneous transluminal coronary angioplasty) Expected: 02/14/2025 (Approximate), Expires: 02/14/2026 documented as of this encounter Goals Goal Patient Goal Type Associated Problems Recent Progress Patient-Stated? Author Quit smoking Lifestyle No Prisca Flores RN documented as of this encounter Visit Diagnoses Diagnosis S/P PTCA (percutaneous transluminal coronary angioplasty)- Primary Postsurgical percutaneous transluminal coronary angioplasty status documented in this encounter Care Teams Teacher Of Family And Consumer Science Relationship Specialty Start Date End Date Moshe Coto MD [address] [address] PCP - General FAMILY PRACTICE 05/12/19 documented as of this encounter
--- OUTSIDE RECORDS SUMMARY | 2025-04-16 07:00 | XMS_ITS | Patient Health Record ---
Author Organization [facility] [employer] ([address]) Address [address] [place] [address] Care Team Providers Care Aix Architect Name Role Phone Rose Sparks Primary Care Provider Ilene Arenas Unavailable [phone] Allergies No Known Allergies Results Component Value Reference Range Notes Spirometry Reviewed date: Interpretation:Abnormal Performing Lab: Notes/Report: Abnormal SpiroPreBronchodilator_FVC 3.97 SpiroPostBronchodilator_FEF25_75 0 SpiroPreBronchodilator_FEF25_75 2.13 SpiroPreBronchodilator_FEV1 2.9 SpiroPrecentPredictionPost_FEF25_75 0 SpiroPrecentPredictionPost_FEV1 0 SpiroPrecentPredictionPost_FEV1_OVER_FVC 0 SpiroPrecentPredictionPost_FVC 0 SpiroPrecentPredictionPre_FEF25_75 50.8 SpiroPrecentPredictionPre_FEV1 70.9 SpiroPrecentPredictionPre_FEV1_OVER_FVC 89.5 SpiroPrecentPredictionPre_FVC 79.2 SpiroPredicted_FEF25_75 4.19 SpiroPreBronchodilator_FEV1_OVER_FVC 73.05 SpiroPreBronchodilator_PEF 7.1 SpiroPostBronchodilator_FVC 0 SpiroPostBronchodilator_FEV1 0 SpiroPostBronchodilator_FEV1_OVER_FVC 0 SpiroPostBronchodilator_PEF 0 SpiroPredicted_FVC 5.01 SpiroPredicted_FEV1 4.09 SpiroPredicted_FEV1_OVER_FVC 81.63 SpiroPredicted_PEF 9.08 Reason For Referral No Information Medications Medication SIG (Take, Route, Frequency, Duration) Notes Start Date End Date Status Ventolin HFA 108 (90 Base) MCG/ACT 1 puff as needed Inhalation every 4 hrs Active Breztri Aerosphere 160-9-4.8 MCG/ACT INHALE 2 PUFFS BY MOUTH TWICE DAILY Inhalation; Duration: 30 Days Active Breztri Aerosphere 160-9-4.8 MCG/ACT 2 puffs Inhalation Twice a day; Duration: 30 days 12/05/2024 Active predniSONE 20 MG 3 tablets Orally Onc e a day; Duration: 5 days 12/05/2024 Active Albuterol Sulfate HFA 108 (90 Base) MCG/ACT 2 puffs as needed Inhalation every 4 hrs; Duration: 30 days 12/05/2024 Active Social History Tobacco Use: Social History Observation Description Date Details (start date - stop date) Current Smoker NA - NA Tobacco Control (Standard) Question Answer Notes Tobacco use: Current smoker How often do you smoke cigarettes? Every day How many cigarettes a day do you smoke? 21-30 How soon after you wake up do you smoke your fir st cigarette? 6-30 minutes Are you interested in quitting? Ready to quit Problems Problem Type SNOMED Code ICD Code Onset Dates Problem Status W/U Status Risk Notes Problem Chronic allergic conjunctivitis (35324672) Other chronic allergic conjunctivitis (H10.45) Active confirmed Problem Allergic rhinitis caused by pollen (disorder) (37666616) Allergic rhinitis due to pollen (J30.1) Active confirmed Problem Allergic rhinitis (44075458) Other allergic rhinitis (J30.89) Active confirmed Problem Uncomplicated moderate persistent asthma (213326514) Moderate persistent asthma, uncomplicated (J45.40) Active confirmed Problem Allergic rhinitis caused by animal hair and dander (623033396718517) Allergic rhinitis due to animal (cat) (dog) hair and dander (J30.81) Active confirmed Vital Signs Blood pressure diastolic 79 mm Hg 12/05/2024 Oximetry 97 % 12/05/2024 Height 69 in 12/05/2024 Blood pressure systolic 147 mm Hg 12/05/2024 Weight 208.2 lbs 12/05/2024 BMI 30.74 kg/m2 12/05/2024 Encounters Encounter Location Date Provider Diagnosis [facility] [address] [facility] [address] [place] [address] 12/05/2024 Ilene Donaldson Allergic rhinitis du e to pollen J30.1 ; Moderate persistent asthma, uncomplicated J45.40 ; Allergic rhinitis due to animal (cat) (dog) hair and dander J30.81 ; Other allergic rhinitis J30.89 and Other chronic allergic conjunctivitis H10.[address] [address] 12/05/2024 Ilene Donaldson Assessments Encounter Date Diagnosis (ICD Code) Assessment Notes Treatment Notes Treatment Clinical Notes Section Notes 12/05/2024 Allergic rhinitis due to pollen (ICD-10 - J30.1) Given the history and symptoms, skin testing was performed to common aeroallergens to determine atopic status. Samantha clearly suffers from atopic disease based upon our skin testing and clinical history. Accordingly, we have introduced a new, aggressive medication regimen, discussed nasal washes and allergy-specific avoidance measures. We also discussed adjunctive therapies including subcutaneous, specific allergen immunotherapy as relates to the treatment and prevention of atopic disease. He is currently considering the risks, benefits and alternatives to this care. Risks: bleeding, infection, allergic reaction, anaphylaxis; Benefits: reduced need for medications, improved symptoms, disease modification. Alternatives: watch/wait, change medication regimen, improve allergy avoidance measures. Follow-up in 1 month for interval evaluation and management 12/05/2024 Moderate persistent asthma, uncomplicated (ICD-10 - J45.40) Persistent asthma and uncontrolled with Breztri. Spirometry today shows obstruction. Records requested from Dr. Sparks's office. We discussed starting immunotherapy or biologics. For now, plan to start immunotherapy and monitor for improvement in asthma control. 12/05/2024 Allergic rhinitis due to animal (cat) (dog) hair and dander (ICD-10 - J30.81) Follow allergen avoidance, meds and consider SCIT as an adjunctive treatment to current regimen 12/05/2024 Other allergic rhinitis (ICD-10 - J30.89) Follow allergen avoidance, meds and consider SCIT as an adjunctive treatment to current regimen 12/05/2024 Other chronic allergic conjunctivitis (ICD-10 - H10.45) Given ocular signs and symptoms I encouraged allergy avoidance measures and meds as above. If symptoms persist, consider adding additional medications including intraocular antihistamine/mas t cell stabilizer, PRN Plan Of Treatment No Information Insurance Providers Payer Name Payer Address Payer Phone Subscriber Number Group Number Insured Name Patient Relationship to Insured Coverage Start Date Coverage End Date [employer] [address] [place] [address] [id number] Samantha Suh Self - patient is the insured Medical (General) History Medical History History ICD Code Asthma COPD Hospitalization History Reason Date(Month/Year) pneumonia childhood
--- OUTSIDE RECORDS SUMMARY | 2025-04-16 07:00 | XMS_ITS ---
Author Organization [facility] [place] ([address]) Address [address] [place] [address] Care Team Providers Care Tack Cutter Name Role Phone Rose Sparks Primary Care Provider UnavailIlene Daniel Unavailable [phone] REASON FOR VISIT MULTIMEDIA MANAGER Allergies & Asthma Encounters Encounter Location Date Provider Diagnosis [facility] [address] [place] [address] 12/11/2024 Ilene Donaldson Plan Of Treatment No Information Progress Notes * Flor GAONAOB: [birth year] (39 yo M)Acc No.[id number]:12/11/2024 Progress Notes Patient: Virgilio KING Provider: Memo Donaldson MD :1985 A ge:39 Y S ex:Male Date:12/11/2024 Address:[address], [id number] Pcp:Rose Sparks Subjective: * Chief Complaints: * 1 . MULTIMEDIA MANAGER Allergies & Asthma. * Medical History: Objective: * Vitals: Assessment: Plan: * Treatment: * Billing Information: * Visit Code: * Procedure Codes: * Electronic signature of Lynda Donaldson MD on 04/16/2025 at 06:59 AM CDT Sign off status: Pending * Provider: Memo Donaldson MD Date: 0 12/11/2024 Generated for Lorne gray/Shanthi/Emily on: 0 04/16/2025 06:59 AM GIL
--- NOTE | 2025-05-07 11:44 | WPDHOMESLEEP ---
Sleep Study - Home Unattended Date of Study: 04/16/25 <Rose Sparks MD - Last Filed: 05/07/25 11:44> Ordering Provider: Rose Sparks MD <Rose Sparks MD - Last Filed: 05/07/25 11:44> Interpreting Provider: Rose Sparks MD <Rose Sparks MD - Last Filed: 05/07/25 11:44> Home Sleep Study Type: Watch PAT <Rose Sparks MD - Last Filed: 05/07/25 11:44> Height: 1.78 m <Rose Sparks MD - Last Filed: 05/07/25 11:44> Weight: 90.718 kg <Rose Sparks MD - Last Filed: 05/07/25 11:44> Body Mass Index: 28.7 <Rose Sparks MD - Last Filed: 05/07/25 11:44> 28.7 <Ayde Yepez DO - Last Filed: 05/13/25 10:52> Neck Circumference (inches): 17.5 <Rose Sparks MD - Last Filed: 05/07/25 11:44> [place]: 0 <Rose Sparks MD - Last Filed: 05/07/25 11:44> Reason for Sleep Study Sleep abnormalities <Rose Sparks MD - Last Filed: 05/07/25 11:44> [facility] Past Medical History Medical History: Medical History Bursitis of elbow Shingles Diarrhea Rhinitis Screening, lipid RSV (acute bronchiolitis due to respiratory syncytial virus) Hypoxemia Wheezing Uncontrolled persistent asthma Overweight with body mass index (BMI) of 28 to 28.9 in adult Acute bacterial sinusitis Acute bilateral thoracic back pain Acute bronchitis, unspecified Acute suppurative otitis media of left ear without spontaneous rupture of ear drum Bronchitis Dietary counseling and surveillance (06/13/17) Dysfunction of both eustachian tubes Elevated glucose Influenza B Tobacco abuse Unspecified asthma, uncomplicated <Rose Sparks MD - Last Filed: 05/07/25 11:44> Family History Family History: Family History Mother Hypertension Diabetes mellitus Father No problems noted. Sibling No problems noted. 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 Gender identity (if verbalized by the patient): Male <Rose Sparks MD - Last Filed: 05/07/25 11:44> Medications Home Medications: Home Medications ?Medication ?Instructions ?Recorded ?Confirmed ?Type cyclobenzaprine 10 mg tablet 10 mg PO TID PRN muscle spasm #30 01/19/23 03/12/25 Rx tabs omeprazole 20 mg tablet,delayed 20 mg PO DAILY 03/20/24 03/12/25 History release aspirin 81 mg chewable tablet PO 02/12/25 03/12/25 History atorvastatin 80 mg tablet mg PO 02/12/25 03/12/25 History carvedilol 6.25 mg tablet mg PO 02/12/25 03/12/25 History losartan 25 mg tablet mg PO 02/12/25 03/12/25 History nitroglycerin 0.4 mg sublingual mg sublingual 02/12/25 03/12/25 History tablet ticagrelor 90 mg tablet mg PO 02/12/25 03/12/25 History albuterol sulfate 90 mcg/actuation See Rx Instructions .Route 05/02/25 Rx aerosol inhaler .COMPLEX #8.5 grams budesonide 160 mcg-glycopyr 9 See Rx Instructions .Route 05/02/25 Rx mcg-formot 4.8 mcg/actuation HFA .COMPLEX #10.7 grams inhaler (Breztri Aerosphere) <Rose Sparks MD - Last Filed: 05/07/25 11:44> Assessment and Plan Data The data obtained during this sleep study is adequate for interpretation. <Rose Sparks MD - Last Filed: 05/07/25 11:44> Certification This sleep study has been reviewed by a board certified sleep medicine physician. <Rose Sparks MD - Last Filed: 05/07/25 11:44>
[2025-05-13 10:52] VITALS: BMI 28.7
--- NOTE | 2025-05-13 10:52 | P.SLEEP_ITS ---
Sleep Study - Home Unattended Date of Study: 04/16/25 Ordering Provider: Rose Sparks MD Interpreting Provider: Ayde Yepez, DO Home Sleep Study Type: Watch PAT Height: 1.78 m Weight: 90.718 kg Body Mass Index: 28.7 Neck Circumference (inches): 17.5 [place]: 0 Reason for Sleep Study Unrefreshing sleep Sleep History The patient is a 40-year-old male that had a sleep study ordered by his dehydrogenation converter operator for evaluation of sleep apnea. The patient admits to snoring loudly. He denies having interruptions in breathing while asleep. He denies choking or gasping at night. He denies having trouble breathing on his back. He denies morning headaches. He denies having a dry or sore mouth/ throat in the morning. He denies nocturnal heartburn. He denies nocturia. He denies having difficulty falling or staying asleep. He denies having difficulty returning to sleep if he wakes up throughout the night. He denies any hypnotic or sedative use. He denies feeling anxious about sleep. He denies feeling tired or sleepy during the day. He denies feeling tired in the morning. He denies having the urge to fall asleep during the day. He denies feeling drowsy while driving. He denies sleep paralysis, cataplexy and hypnagogic/ hypnopompic hallucinations. He denies clenching or grinding his teeth. He denies kicking or jerking his legs excessively. He does have a restless feeling in his legs that does cause an urge to move his legs. The restless feeling gets worse with rest but does not improve with activity. It occurs in the evening or at night time. It does not cause a disturbance in his sleep. He goes to bed at 11:00 p.m. on work days and at midnight on his days off. It takes him 15 minutes to fall asleep. He gets 5 hours of sleep on work days and 8 hours on his days off. His sleep is a little more restorative on his days off. He denies any planned naps. He denies dream enactment behavior. He denies sleep walking. He consumes 3-4 cups of caffeinated beverage per day. He has 1 alcoholic beverage 1-2 nights per week. He smokes more than 1 pack of cigarettes per day. He exercises 5-7 nights per week. [facility] Past Medical History Medical History Bursitis of elbow Shingles Diarrhea Rhinitis Screening, lipid RSV (acute bronchiolitis due to respiratory syncytial virus) Hypoxemia Wheezing Uncontrolled persistent asthma Overweight with body mass index (BMI) of 28 to 28.9 in adult Acute bacterial sinusitis Acute bilateral thoracic back pain Acute bronchitis, unspecified Acute suppurative otitis media of left ear without spontaneous rupture of ear drum Bronchitis Dietary counseling and surveillance (06/13/17) Dysfunction of both eustachian tubes Elevated glucose Influenza B Tobacco abuse Unspecified asthma, uncomplicated Family History Family History Mother Hypertension Diabetes mellitus Father No problems noted. Sibling No problems noted. 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 Gender identity (if verbalized by the patient): Male Medications Home Medications ?Medication ?Instructions ?Recorded ?Confirmed ?Type cyclobenzaprine 10 mg tablet 10 mg PO TID PRN muscle s pasm #30 01/19/23 03/12/25 Rx tabs omeprazole 20 mg tablet,delayed 20 mg PO DAILY 4 03/12/25 History release aspirin 81 mg chewable tablet PO 02/12/25 03/12/25 His tory atorvastatin 80 mg tablet mg PO 02/12/25 03/12/25 Hist ory carvedilol 6.25 mg tablet mg PO 02/12/25 03/12/25 Hist ory losartan 25 mg tablet mg PO 02/12/25 03/12/25 Hist ory nitroglycerin 0.4 mg sublingual mg sublingual 02/12/25 03/12/25 History tablet ticagrelor 90 mg tablet mg PO 02/12/25 03/12/25 Hist ory albuterol sulfate 90 mcg/actuation See Rx Instructions .Route 05/02/25 Rx aerosol inhaler .COMPLEX #8.5 grams budesonide 160 mcg-glycopyr 9 See Rx Instructions .Rou te 05/02/25 Rx mcg-formot 4.8 mcg/actuation HFA .COMPLEX #10.7 grams inhaler ([employer]) Sleep Procedure The sleep study was completed using [employer] a technically adequate device with seven channels: peripheral arterial tone, actigraphy, body position, snore, respiratory movement, pulse oximetry, sleep staging, and heart rate. Prior to using the device, the patient received verbal and written instructions for its application and was provided with the help desk phone number for additional telephonic instruction with 24-hour availability of qualified personnel to answer questions. The study was scored using AASM and CMS guidelines. Sleep Architecture The total recording time is 8 hrs, 23 min. The total sleep time is 7 hrs, 11 min. Sleep latency is 39 minutes. REM latency is 33 minutes. The patient had 6 episodes of waking. Sleep architecture shows 26.4% deep sleep, 42.2% light sleep, and (as % Total Sleep Time) showed NREM (Light 42.2%; Deep 26.4%), and a 31.4% stage REM. The patient spent 9.4% of total sleep time in the supine position. Sleep efficiency was 85.69. Respiratory Analysis The overall AHI (pAHI 4%:) is 3.9. The overall AHI (pAHI 3%:) is 5.7. The central AHI is 0.1. The AHI was 7.1 in NREM and 2.7 in REM sleep. The AHI was 40.0 in Supine and 2.2 in Non-supine sleep. Percent of Miguel Ángel Hsieh respirations is 0.0. Oximetry Data The oxygen desaturation index (CHRISTIE 4%:) is 3.8. The mean saturation is 92%, and the lowest saturation is 89%. Time spent with saturation < 88% is 0.0 minutes. Snoring Profile Snoring average intensity is 44 dB. The patient snored above 45 decibels for 115.1 minutes, 26.7% of sleep time. Cardiac Profile The average pulse rate is 72 beats per minutes. The lowest pulse rate is 58 bpm. The highest pulse rate reported is 104 bpm. Atrial fibrillation was not detected. Premature beats occur <0.1 per minute. Assessment and Plan Assessment and Plan (1) DIPTI (obstructive sleep apnea): Code(s): G47.33 - Obstructive sleep apnea (adult) (pediatric) Status: Acute Assessment and Plan: Per AASM guidelines (pAHI 3%), the patient had an overall AHI of 5.7 with desatu ration down to 89%. This is consistent with mild sleep apnea. Due to the patient's asthma, he qualifies for treatment. I recommend that the patient be prescribed Resmed AirSense 11 AutoPAP 5-15 cm H2O, CPAP mask/filters/tubing and heated humidity. A mandibular advancement device is also an acceptable treatment option. This should be used with all episodes of sleep.? Compliance should be reviewed within 31-90 days of starting therapy for usage greater than 4 hours per night greater than 70% of the nights. The patient should be asked about symptoms such as?excessive daytime sleepiness, quality of sleep, decreased nocturia, increased?mental functioning such as memory, mood, and concentration. Per CMS guidelines (pAHI 4%), the patient had an overall AHI of 3.9 with desaturation down to 89%. This is not consistent with sleep-disordered breathing. If the patient's insurance company only recognizes CME criteria, the patient would not be eligible for treatment. Data The data obtained during this sleep study is adequate for interpretation. Certification This sleep study has been reviewed by a board certified sleep medicine physician.
== END 2025-04-17 11:32 | disposition home or self-care (01) ==
PROVIDERS: PCP Family Medicine; Visit Provider Internal Medicine Critical Care Medicine
DX: G47.9 Sleep disorder, unspecified (principal)
CPT/HCPCS: 95800